=== PATIENT | female | born 1995 ===

== ENCOUNTER 2018-01-21 15:17 | Inpatient (IN) ==
[2018-01-21] MEDS ORDERED: ONDANSETRON 4 MG/2 ML VIAL IV PRN (15:42)
[2018-01-21] MEDS ORDERED: INFLUENZA VIRUS VACCINE 0.5 ML SYRINGE IM ONE (15:45)
[2018-01-21] MEDS ORDERED: AMPICILLIN INJ 2,000 MG in SODIUM CHLORIDE 0.9% 100 ML IV ONE (15:45)
[2018-01-21] MEDS ORDERED: LACTATED RINGERS 1,000 ML IV ONE (15:50)
[2018-01-21] MEDS ORDERED: FAMOTIDINE 20 MG/2 ML VIAL IV ONE (15:50)
[2018-01-21] MEDS ORDERED: ePHEDrine 50 MG/ML AMP IV PRN (15:50)
[2018-01-21] MEDS ORDERED: NALOXONE 0.4 MG/ML VIAL IV PRN (15:50)
[2018-01-21] MEDS ORDERED: diphenhydrAMINE 50 MG/1 ML VIAL IV PRN ×2 (15:50)
[2018-01-21] MEDS ORDERED: hydrOXYzine HCL 25 MG/1 ML VIAL IM PRN (15:50)
[2018-01-21] MEDS ORDERED: CITRIC ACID/SODIUM CITRATE 30 ML UDCUP PO ONE (15:50)
[2018-01-21 16:01] LABS: Basophils % 0.2 % (0.0-0.8); Eosinophils # 0.1 10*3/uL (0.0-0.87); Eosinophils % 0.6 % (0.00-10.9); Hematocrit 33.3 VOL% (35.7-47.0); Hemoglobin 10.8 GM/DL (12.0-16.0); Immature Granulocytes % 0.7 %; Immature Granulocytes Absolute 0.08 #; Lymphocytes # 1.5 10*3/uL (1.4-4.0); Lymphocytes % 13.1 % (21.3-54.2); Mean Corpuscular HGB Conc 32.4 GM/DL (32-36); Mean Corpuscular Hemoglobin 30 PG (27-34); Mean Corpuscular Volume 91.2 FL (87-102); Mean Platelet Volume 11.9 FL (9.6-12.0); Monocytes # 0.8 10*3/uL (0.11-0.8); Monocytes % 6.7 % (1.7-12.7); Neutrophils % 78.7 % (38.7-73.9); Platelet Count 178 T/CUMM (130-400); Red Blood Count 3.65 MC/CUMM (3.8-5.5); Red Cell Distribution Width 14.6 % (9.3-17.3); White Blood Count 11.5 T/CUMM (4-12)
[2018-01-21] MEDS: fentaNYL 2 MCG/ROPIV 0.2% EPID 100 ML EPIDURAL SCH (17:10)
[2018-01-21] MEDS: LACTATED RINGERS 1,000 ML IV SCH (17:10)
[2018-01-21 17:19] LABS: HIV Antigen/Antibody Result Nonreactive (Nonreactive); Hepatitis B Surface Ag Quant 0.31 Index; Hepatitis B Surface Ag Result Negative (Negative); Rubella Antibody IgG 6.9 IU/ML
[2018-01-21 17:49] LABS: Apearance,Urine CLEAR (Clear); Bilirubin,Urine Negative (Negative); Blood, Urine Negative (Negative); Glucose,Urine (UA) Negative (Negative); Ketones,Urine 5 mg/dL (Negative); Mucus,Urine Occasional /LPF (Occasional); Nitrite,Urine Negative (Negative); Protein,Urine Negative; Urine Color Straw (Yellow); Urine Specific Gravity 1.012 (1.001-1.035); Urine Urobilinogen < 2.0 EU/DL (0.2-1.0); WBC,Urine <1 /HPF (0-6)
[2018-01-21] MEDS: AMPICILLIN INJ 1,000 MG in SODIUM CHLORIDE 0.9% 100 ML IV SCH (20:40)
[2018-01-22] MEDS: LACTATED RINGERS 1,000 ML IV SCH (00:35)
[2018-01-22] MEDS: fentaNYL 2 MCG/ROPIV 0.2% EPID 100 ML EPIDURAL SCH (00:38)
[2018-01-22] MEDS: AMPICILLIN INJ 1,000 MG in SODIUM CHLORIDE 0.9% 100 ML IV SCH (00:40)
[2018-01-22] MEDS ORDERED: LIDOCAINE 1% 50 ML VIAL ONE (01:29)
[2018-01-22] MEDS ORDERED: TRANEXAMIC ACID 1,000 MG/10 ML VIAL ONE (01:29)
[2018-01-22] MEDS ORDERED: OXYTOCIN/LR 20 UNIT/1,000 ML BAG IV ONE ×2 (01:29→01:58)
[2018-01-22] MEDS ORDERED: miSOPROStol 200 MCG TABLET ONE (01:29)
[2018-01-22] MEDS ORDERED: METHYLERGONOVINE 0.2 MG/1 ML AMP IM ONE (01:30)
[2018-01-22] MEDS ORDERED: METHYLERGONOVINE 0.2 MG/1 ML AMP ONE (01:30)
[2018-01-22] MEDS ORDERED: DIPH/TET/ACEL PERT BOOSTER VACCINE 0.5 ML VIAL IM ONE (01:58)
[2018-01-22] MEDS ORDERED: LANOLIN 50% CREAM 0.3 OZ TUBE TOP PRN (01:58)
[2018-01-22] MEDS ORDERED: ONDANSETRON 4 MG/2 ML VIAL IV PRN (01:58)
[2018-01-22] MEDS ORDERED: WITCH HAZEL PADS 100/JAR TOP PRN (01:58)
[2018-01-22] MEDS ORDERED: HYDROCORTISONE 2.5% RECTAL CREAM 30 GM TUBE TOP PRN (01:58)
[2018-01-22] MEDS ORDERED: ACETAMINOPHEN 325 MG TABLET PO PRN (01:58)
[2018-01-22] MEDS ORDERED: BENZOCAINE 20%/MENTHOL 0.5% SPRAY 56 GM CAN TOP PRN (01:58)
[2018-01-22] MEDS ORDERED: MEASLES/MUMPS/RUBELLA VACCINE 0.5 ML VIAL SUBCUT ONE (01:58)
[2018-01-22] MEDS ORDERED: oxyCODONE/ACETAMINOPHEN 5-325 MG TABLET PO PRN (01:58)
[2018-01-22] MEDS ORDERED: RHO(D) IMMUNE GLOBULIN 300 MCG SYRINGE IM ONE (01:58)
[2018-01-22] MEDS ORDERED: BISACODYL 10 MG SUPP RECTAL PRN (01:58)
[2018-01-22] MEDS: oxyCODONE/ACETAMINOPHEN 5-325 MG TABLET PO PRN ×2 (04:38→20:08)
[2018-01-22] MEDS: DOCUSATE SODIUM 100 MG CAPSULE PO SCH ×2 (08:17→20:04)
[2018-01-22] MEDS: METHYLERGONOVINE 0.2 MG TABLET PO SCH ×3 (08:17→20:04)
[2018-01-22] MEDS: IBUPROFEN 800 MG TABLET PO PRN ×2 (09:19→20:07)
[2018-01-22 10:05] LABS: Basophils % 0.1 % (0.0-0.8); Eosinophils % 0.3 % (0.00-10.9); Hematocrit 34.1 VOL% (35.7-47.0); Immature Granulocytes % 0.6 %; Immature Granulocytes Absolute 0.08 #; Lymphocytes # 1.8 10*3/uL (1.4-4.0); Lymphocytes % 12.8 % (21.3-54.2); Mean Corpuscular HGB Conc 32.3 GM/DL (32-36); Mean Corpuscular Hemoglobin 29 PG (27-34); Mean Corpuscular Volume 89.7 FL (87-102); Mean Platelet Volume 11.8 FL (9.6-12.0); Monocytes % 7.3 % (1.7-12.7); Neutrophils # 10.9 10*3/uL (1.4-7.4); Neutrophils % 78.9 % (38.7-73.9); Platelet Count 159 T/CUMM (130-400); Red Cell Distribution Width 14.6 % (9.3-17.3); White Blood Count 13.8 T/CUMM (4-12)
[2018-01-22] MEDS ORDERED: SIMETHICONE CHEW 80 MG TABLET PO PRN (20:13)
[2018-01-23] MEDS: METHYLERGONOVINE 0.2 MG TABLET PO SCH (01:57)
[2018-01-23 05:56] LABS: Basophils % 0.1 % (0.0-0.8); Eosinophils # 0.2 10*3/uL (0.0-0.87); Eosinophils % 2.4 % (0.00-10.9); Hematocrit 32.7 VOL% (35.7-47.0); Hemoglobin 10.4 GM/DL (12.0-16.0); Immature Granulocytes % 0.7 %; Immature Granulocytes Absolute 0.06 #; Lymphocytes # 2.4 10*3/uL (1.4-4.0); Lymphocytes % 26.2 % (21.3-54.2); Mean Corpuscular HGB Conc 31.8 GM/DL (32-36); Mean Corpuscular Hemoglobin 29 PG (27-34); Mean Corpuscular Volume 91.1 FL (87-102); Mean Platelet Volume 12.1 FL (9.6-12.0); Monocytes # 0.8 10*3/uL (0.11-0.8); Monocytes % 8.5 % (1.7-12.7); Neutrophils # 5.6 10*3/uL (1.4-7.4); Neutrophils % 62.1 % (38.7-73.9); Platelet Count 137 T/CUMM (130-400); Red Blood Count 3.59 MC/CUMM (3.8-5.5); Red Cell Distribution Width 14.8 % (9.3-17.3); White Blood Count 9.1 T/CUMM (4-12)
[2018-01-23 07:31] VITALS: BP 121/71
[2018-01-23] MEDS: DOCUSATE SODIUM 100 MG CAPSULE PO SCH (09:13)
[2018-01-23] MEDS ORDERED: INFLUENZA VIRUS VACCINE 0.5 ML SYRINGE IM ONE (13:45)
== END 2018-01-23 14:05 | disposition home or self-care (01) | DRG 560 ==
LOC: N.LDOUT 15:17 → N.LD 15:19 → N.OB 01-22 04:20
PROVIDERS: ADMIT Obstetrics & Gynecology; ATTEND Obstetrics & Gynecology

== ENCOUNTER 2018-12-13 00:03 | Inpatient (IN) ==
[2018-12-13] MEDS ORDERED: ONDANSETRON 4 MG/2 ML VIAL IV PRN ×2 (00:12→08:30)
[2018-12-13] MEDS ORDERED: LACTATED RINGERS 500 ML IV PRN (00:12)
[2018-12-13] MEDS ORDERED: BUTORPHANOL 2 MG/ML VIAL IV PRN (00:12)
[2018-12-13] MEDS ORDERED: MEPERIDINE 50 MG/1 ML VIAL IV PRN (00:12)
[2018-12-13] MEDS ORDERED: LACTATED RINGERS 1,000 ML IV SCH (00:30)
[2018-12-13] MEDS ORDERED: OXYTOCIN/LR 20 UNIT/1,000 ML BAG IV SCH (00:30)
[2018-12-13 00:52] LABS: Basophils % 0.1 % (0.0-0.8); Eosinophils # 0.1 10*3/uL (0.0-0.87); Eosinophils % 1.2 % (0.00-10.9); Hematocrit 30.3 VOL% (35.7-47.0); Hemoglobin 9.7 GM/DL (12.0-16.0); Immature Granulocytes % 1.4 %; Immature Granulocytes Absolute 0.11 #; Lymphocytes # 2.1 10*3/uL (1.4-4.0); Lymphocytes % 26.6 % (21.3-54.2); Mean Corpuscular Volume 85.4 FL (87-102); Mean Platelet Volume 12.4 FL (9.6-12.0); Monocytes % 7.1 % (1.7-12.7); Neutrophils % 63.6 % (38.7-73.9); Platelet Count 184 T/CUMM (130-400); Red Blood Count 3.55 MC/CUMM (3.8-5.5); Red Cell Distribution Width 14.2 % (9.3-17.3); White Blood Count 7.8 T/CUMM (4-12)
[2018-12-13] MEDS ORDERED: AMPICILLIN INJ 2,000 MG in SODIUM CHLORIDE 0.9% 100 ML IV ONE ×2 (01:37→02:00)
[2018-12-13] MEDS ORDERED: AMPICILLIN INJ 1,000 MG in SODIUM CHLORIDE 0.9% 100 ML IV SCH (06:00)
[2018-12-13] MEDS ORDERED: ePHEDrine 50 MG/ML AMP IV PRN (07:46)
[2018-12-13] MEDS ORDERED: NALOXONE 0.4 MG/ML VIAL IV PRN (07:46)
[2018-12-13] MEDS ORDERED: ONDANSETRON 4 MG/2 ML VIAL IV ONE (07:46)
[2018-12-13] MEDS ORDERED: diphenhydrAMINE 50 MG/1 ML VIAL IV PRN ×2 (07:46)
[2018-12-13] MEDS ORDERED: FAMOTIDINE 20 MG/2 ML VIAL IV ONE (07:46)
[2018-12-13] MEDS ORDERED: hydrOXYzine HCL 25 MG/1 ML VIAL IM PRN (07:46)
[2018-12-13] MEDS ORDERED: LACTATED RINGERS 1,000 ML IV ONE (07:46)
[2018-12-13] MEDS ORDERED: PROMETHAZINE 25 MG/1 ML VIAL IM ONE (07:46)
[2018-12-13] MEDS ORDERED: CITRIC ACID/SODIUM CITRATE 30 ML UDCUP PO ONE (07:46)
[2018-12-13] MEDS ORDERED: CITRIC ACID/SODIUM CITRATE 30 ML UDCUP ONE (07:47)
[2018-12-13] MEDS ORDERED: fentaNYL 2 MCG/ROPIV 0.2% EPID 100 ML EPIDURAL ONE (07:47)
[2018-12-13] MEDS ORDERED: fentaNYL 2 MCG/ROPIV 0.2% EPID 100 ML EPIDURAL SCH (08:00)
[2018-12-13] MEDS ORDERED: WITCH HAZEL PADS 100/JAR TOP PRN (08:30)
[2018-12-13] MEDS ORDERED: oxyCODONE/ACETAMINOPHEN 5-325 MG TABLET PO PRN ×2 (08:30)
[2018-12-13] MEDS ORDERED: BISACODYL 10 MG SUPP RECTAL PRN (08:30)
[2018-12-13] MEDS ORDERED: HYDROCORTISONE 2.5% RECTAL CREAM 30 GM TUBE TOP PRN (08:30)
[2018-12-13] MEDS ORDERED: MEASLES/MUMPS/RUBELLA VACCINE 0.5 ML VIAL SUBCUT ONE (08:30)
[2018-12-13] MEDS ORDERED: BENZOCAINE 20%/MENTHOL 0.5% SPRAY 56 GM CAN TOP PRN (08:30)
[2018-12-13] MEDS ORDERED: OXYTOCIN/LR 20 UNIT/1,000 ML BAG IV ONE (08:30)
[2018-12-13] MEDS ORDERED: LANOLIN 50% CREAM 0.3 OZ TUBE TOP PRN (08:30)
[2018-12-13] MEDS ORDERED: ACETAMINOPHEN 325 MG TABLET PO PRN (08:30)
[2018-12-13] MEDS ORDERED: DIPH/TET/ACEL PERT BOOSTER VACCINE 0.5 ML VIAL IM ONE (08:30)
[2018-12-13] MEDS ORDERED: RHO(D) IMMUNE GLOBULIN 300 MCG SYRINGE IM ONE (08:30)
[2018-12-13] MEDS ORDERED: fentaNYL 100 MCG/2 ML VIAL ONE (08:49)
[2018-12-13] MEDS ORDERED: BUPIVACAINE SPINAL 0.75% 2 ML AMP SPINAL ONE (08:49)
[2018-12-13] MEDS: IBUPROFEN 800 MG TABLET PO PRN ×2 (13:09→20:07)
[2018-12-13] MEDS: DOCUSATE SODIUM 100 MG CAPSULE PO SCH (20:06)
[2018-12-14 05:13] LABS: Basophils % 0.1 % (0.0-0.8); Eosinophils # 0.1 10*3/uL (0.0-0.87); Eosinophils % 1.6 % (0.00-10.9); Hemoglobin 7.6 GM/DL (12.0-16.0); Immature Granulocytes % 1.1 %; Immature Granulocytes Absolute 0.08 #; Lymphocytes # 2.2 10*3/uL (1.4-4.0); Lymphocytes % 29.3 % (21.3-54.2); Mean Corpuscular HGB Conc 30.4 GM/DL (32-36); Mean Corpuscular Volume 87.1 FL (87-102); Mean Platelet Volume 12.2 FL (9.6-12.0); Monocytes % 7.6 % (1.7-12.7); Neutrophils % 60.3 % (38.7-73.9); Platelet Count 126 T/CUMM (130-400); Red Blood Count 2.87 MC/CUMM (3.8-5.5); Red Cell Distribution Width 14.4 % (9.3-17.3); White Blood Count 7.5 T/CUMM (4-12)
[2018-12-14] MEDS: FERROUS SULFATE 325 MG TABLET PO SCH ×2 (08:56→20:38)
[2018-12-14] MEDS: DOCUSATE SODIUM 100 MG CAPSULE PO SCH ×2 (08:56→20:38)
[2018-12-14] MEDS: IBUPROFEN 800 MG TABLET PO PRN ×2 (11:32→20:38)
[2018-12-15 07:31] VITALS: BP 121/74
[2018-12-15] MEDS: DOCUSATE SODIUM 100 MG CAPSULE PO SCH (09:58)
[2018-12-15] MEDS: FERROUS SULFATE 325 MG TABLET PO SCH (09:59)
[2018-12-15] MEDS: IBUPROFEN 800 MG TABLET PO PRN (11:28)
== END 2018-12-15 14:40 | disposition home or self-care (01) | DRG 560 ==
LOC: N.LDOUT 00:03 → N.LD 00:05 → N.OB 11:11
PROVIDERS: ADMIT Obstetrics & Gynecology; ATTEND Obstetrics & Gynecology